=== PATIENT | female | born 1955 | race Caucasian/White ===

== ENCOUNTER → 2017-06-02 | Outpatient (CLI) | payer OTHER | END | disposition home or self-care (01) | LOC: KCIC MRI 07:44 | DX: R51 Headache (principal); I10 Essential (primary) hypertension | CPT/HCPCS: 70551 ==

== ENCOUNTER → 2017-06-30 | Outpatient (CLI) | payer OTHER ==
[2017-06-30] MEDS: GADOBUTROL 10 MMOL/10 ML VIAL IV (10:40)
== END | disposition home or self-care (01) ==
LOC: MRI 08:57
DX: R51 Headache (principal)
CPT/HCPCS: 70552; A9585

== ENCOUNTER 2017-08-03 08:05 | Outpatient (CLI) | payer OTHER ==
[2017-08-03 11:16] LABS: CSF GLUCOSE 114 mg/dL (37-70)
[2017-08-03 11:16] LABS: CSF PROTEIN 63.3 mg/dL (15.0-45.0)
[2017-08-03 11:44] LABS: CSF CLARITY CLEAR; CSF COLOR COLORLESS; CSF RBC COUNT 333; CSF TUBE # 4; CSF WBC COUNT 2
[2017-08-05 16:25] LABS: HERPES SIMPLEX TYPE 1 Negative (Negative); HERPES SIMPLEX TYPE 2 Negative (Negative)
[2017-08-12 10:49] LABS: VIRAL CULT FINAL No virus isolated. (.)
== END 2017-08-03 11:16 | disposition home or self-care (01) ==
LOC: RAD 08:05
DX: G93.2 Benign intracranial hypertension (principal)
CPT/HCPCS: 62270; 77003; 82945; 84157; 87071; 87075; 87102; 87205; 87252; 87529; 89051